=== PATIENT | male | born 1980 | race Caucasian/White ===

== ENCOUNTER 2019-05-01 10:19 | Emergency (ER) | payer SELFPAY ==
[~2019-05-01] VITALS: Ht 185.4 cm; Wt 84.1 kg
[2019-05-01] MEDS ORDERED: CEPHALEXIN500 M1 PO (11:04)
[2019-05-01] MEDS ORDERED: BACTRIM DS1 TAB PO (11:04)
[2019-05-01] MEDS ORDERED: LORTAB 1010 MG PO (11:05)
[2019-05-01 11:15] VITALS: BP 129/81
== END 2019-05-01 11:15 | disposition home or self-care (01) | DRG 603 ==
LOC: ED 10:19
PROC: 0H9FXZZ Drainage of Right Hand Skin, External Approach (ICD-10-PCS; principal; 2019-05-01)
DX: L02.511 Cutaneous abscess of right hand (principal); S60.511A Abrasion of right hand, initial encounter; L08.9 Local infection of the skin and subcutaneous tissue, unspecified; F17.210 Nicotine dependence, cigarettes, uncomplicated; B95.61 Methicillin susceptible Staphylococcus aureus infection as the cause of diseases classified elsewhere; X58.XXXA Exposure to other specified factors, initial encounter

== ENCOUNTER 2019-11-19 | Emergency (ER) | payer SELFPAY ==
[~2019-11-19] MED LIST: BACTRIM DS1 TAB PO; CEPHALEXIN500 M1 PO; LORTAB 1010 MG PO
[2019-11-19 03:08] LABS: HEMATOCRIT 43.4 % (39.0-50.0); HEMOGLOBIN 14.2 g/dl (14.0-18.0); IMMATURE GRANULOCYTES 0.5 % (0.0-5.0); MEAN CELL VOLUME 96.9 fL CALC (80.0-100.0); MEAN CORPUSCULAR HGB 31.7 pG CALC (26.0-32.0); MEAN CORPUSCULAR HGB CONC 32.7 g/dL CAL (32.0-36.0); NEUT# 2.9 thou/uL (1.82-7.42); RED BLOOD COUNT 4.48 mill/uL (4.70-6.10); RED CELL DISTRI WIDTH 13.8 % (11.5-15.5)
[2019-11-19 03:10] LABS: URINE BILIRUBIN - DIPSTICK NEGATIVE (NEGATIVE); URINE BLOOD DIPSTICK NEGATIVE (NEGATIVE); URINE COLOR YELLOW; URINE GLUCOSE - DIPSTICK NEGATIVE (NEGATIVE); URINE KETONE NEGATIVE (NEGATIVE); URINE LEUK ESTERASE NEGATIVE (NEGATIVE); URINE NITRITE - DIPSTICK NEGATIVE (Negative); URINE PROTEIN - DIPSTICK NEGATIVE (NEG-TRACE); URINE SPECIFIC GRAVITY 1.025; URINE UROBILINOGEN - DIPSTICK 0.2 E.U./dL (0.2)
[2019-11-19 03:14] LABS: BARBITURATES NEGATIVE (NEGATIVE); COCAINE NEGATIVE (NEGATIVE); METHADONE NEGATIVE (NEGATIVE); OXCYCODONE NEGATIVE (NEGATIVE); TETRAHYDROCANNABIONOL NEGATIVE (NEGATIVE); TRICYLIC ANTIDEPRESSANTS NEGATIVE (NEGATIVE)
[2019-11-19 03:17] LABS: ALBUMIN 4.3 g/dL (3.2-5.0); ALKALINE PHOSPHATASE 96 u/l (38-126); AMYLASE 80 u/l (30-110); BILIRUBIN, TOTAL 0.9 mg/dL (0.0-1.4); BUN 8 mg/dL (9-20); BUN/CREATININE RATIO 9 (12-20 (CALC)); CARBON DIOXIDE 24 mmol/l (22-30); CHLORIDE 112 mmol/l (95-108); CREATININE 0.9 mg/dL (0.7-1.3); ETHYL ALCOHOL 264 mg/dl (0-30); GFR > 60 ML/MIN (>=60 (CALC)); GFR FOR AFR.AMER. > 60 ML/MIN (>=60 (CALC)); SGOT/AST 44 u/l (17-59); SODIUM 144 mmol/l (137-146); TOTAL PROTEIN 7.6 g/dL (6.3-8.2)
[2019-11-19 03:22] LABS: ANION GAP 14 (6-22 (CALC)); POTASSIUM 5.5 mmol/l (3.5-5.1)
[2019-11-19] MEDS ORDERED: CARAFATE1 GM PO (05:37)
[2019-11-19] MEDS ORDERED: PROTONIX40 M2 PO (05:37)
== END 2019-11-19 05:55 | disposition home or self-care (01) | DRG 392 ==
PROVIDERS: Family Medicine
DX: K29.70 Gastritis, unspecified, without bleeding (principal); K29.80 Duodenitis without bleeding; F10.129 Alcohol abuse with intoxication, unspecified; F17.210 Nicotine dependence, cigarettes, uncomplicated
CPT/HCPCS: Q9967

== ENCOUNTER 2020-02-16 23:19 | Emergency (ER) | payer SELFPAY ==
[~2020-02-16] VITALS: Ht 185.4 cm; Wt 84.0 kg
[~2020-02-16 23:19] MED LIST changes: +CARAFATE1 GM PO; +PROTONIX40 M2 PO
[2020-02-16 23:45] VITALS: BP 140/86
== END 2020-02-17 00:18 | disposition left against medical advice (07) | DRG 204 ==
LOC: ED 23:19
DX: R05 Cough (principal); R53.1 Weakness; R52 Pain, unspecified; F17.200 Nicotine dependence, unspecified, uncomplicated; Z91.19 Patient's noncompliance with other medical treatment and regimen